=== PATIENT | female | born 1990 | race Caucasian/White ===

== ENCOUNTER 2019-07-11 18:57 | Inpatient (IN) ==
--- NOTE | 2019-07-11 20:58 | HP ---
Chief Complaint - Chief Complaint Date of Service: 07/11/19 Time of Service: 20:54 Chief Complaint: fall and contractions History of Present Illness: 28 year old @ 38w 0d who fell on her left knee from a few steps. She did not hit her abdomen. She denies vb or lof. She is kareem and her ctx are getting stronger. Fetus is active. Medical History (Updated 04/21/19 @ 08:52 by Elvira Rick RN) Anemia (Acute) w/ Neurofibromatosis, unspecified (Chronic) Migraine Onset Date: Unknown Neurofibromatosis Onset Date: ~08/09/15 neurofibromamid-occipital scalp-dr Antonio 2017 Surgical History: Surgical History (Updated 12/16/18 @ 14:34 by Eloy Corrales DO) Previous section (Chronic) H/O section Onset Date: ~03/16/16 H/O myringotomy age 4 Family History: Family History (Updated 12/16/18 @ 13:28 by Destiney Salazar CMA) Mother Migraine Osteoporosis Father Alive and well Social History: (Last Reviewed 07/09/19 @ 15:44 by Josefa Ruiz RN) Social History: Marital status: household members: spouse, children current occupational status: employed current occupation: [employer] current occupational exposures/hazards: No Service: No Tobacco: Smoking Status: Never smoker Alcohol: alcohol intake: former details: none since Substance Use: substance use type: does not use Dietary Habits: caffeine: Yes caffeine comment: 1/weekly Type: coffee Review Of Systems (GEN) - Review of Systems Generalized/Overall Review: Present: No Symptoms Reported Musculoskeletal: Present: Other - left knee abrasion Misc: All systems neg except as marked Allergies/Adverse Reactions: Allergies Allergy/AdvReac Type Severity Reaction Status Date / Time amoxicillin Allergy Intermediate hives Verified 07/11/19 19:22 cefaclor [From Ceclor] Allergy Intermediate hives Verified 07/11/19 19:22 latex Allergy Mild rash Verified 07/11/19 19:22 polyresin D Allergy Intermediate hives Uncoded 08/15/18 09:32 Home Medications: HOME MEDICATIONS Vits96/Iron Fum/Folic [ S] 1 tab PO DAILY 03/15/16 [Last Taken 07/10/19] ferrous sulfate 325 mg (65 mg iron) tablet 325 mg PO DAILY #30 tab 04/21/19 [Last Taken 07/11/19] ascorbic acid (vitamin C) 500 mg capsule mg PO DAILY cap 05/19/19 [Last Taken 07/11/19] breast pump See Dose Instructions .ROUTE .MEDSUPPLY #1 ea 06/25/19 [Last Taken Unknown] bacitracin 500 unit/gram topical ointment 1 applic TP TID #28 g 07/06/19 [Last Taken 07/11/19] Exam - Exam Vital Signs: 121/78 100 98% 16 Constitutional: Present: Alert, Oriented x3, Cooperative Respiratory: Present: lungs clear, normal breath sounds Cardiovascular/Chest: Present: regular rate, rhythm, no chest tenderness Abdomen: Present: soft, nontender, nondistended Extremity: Present: non-tender, no calf tenderness Skin Exam: Present: normal color, warm/dry, no cyanosis Appearance: Present: appropriate appearance Eye contact: Present: cooperative Thoughts: Present: normal thought pattern Assessment/Plan - Narrative Narrative: 28 year old @ 38w 0d Regular ctx s/p fall, left abdominal tenderness. Proceed with delivery.
[2019-07-11] MEDS ORDERED: ceFAZolin SODIUM/DEXTROSE,ISO 2 GM/50 ML BAG IV ONE (20:59)
[2019-07-11] MEDS ORDERED: RINGER'S SOLUTION,LACTATED 1,000 ML IV PRN (20:59)
[2019-07-11] MEDS ORDERED: OXYTOCIN 20 UNITS in RINGER'S SOLUTION,LACTATED 1,000 ML IV ONE ×2 (20:59→22:59)
--- NOTE | 2019-07-11 21:20 | ANES ---
Anesthesia Pre Procedure Eval HOME MEDICATIONS Vits96/Iron Fum/Folic [ S] 1 tab PO DAILY 03/15/16 [Last Taken 07/10/19] ferrous sulfate 325 mg (65 mg iron) tablet 325 mg PO DAILY #30 tab 04/21/19 [Last Taken 07/11/19] ascorbic acid (vitamin C) 500 mg capsule mg PO DAILY cap 05/19/19 [Last Taken 07/11/19] breast pump See Dose Instructions .ROUTE .MEDSUPPLY #1 ea 06/25/19 [Last Taken Unknown] bacitracin 500 unit/gram topical ointment 1 applic TP TID #28 g 07/06/19 [Last Taken 07/11/19] Allergies/Adverse Reactions: Allergies Allergy/AdvReac Type Severity Reaction Status Date / Time amoxicillin Allergy Intermediate hives Verified 07/11/19 19:22 cefaclor [From Ceclor] Allergy Intermediate hives Verified 07/11/19 19:22 latex Allergy Mild rash Verified 07/11/19 19:22 polyresin D Allergy Intermediate hives Uncoded 08/15/18 09:32 - Planned Procedure Planned Procedure: ACTIVE LABOR Medication List Reviewed:: Yes Allergies Verified: Yes Medical History (Updated 07/11/19 @ 20:58 by Kimmie Shen MD) Anemia (Acute) w/ Neurofibromatosis, unspecified (Chronic) Migraine Onset Date: Unknown Neurofibromatosis Onset Date: ~08/09/15 neurofibromamid-occipital scalp-dr Antonio 2017 Surgical History (Updated 07/11/19 @ 20:58 by Kimmie Shen MD) Previous section (Chronic) H/O section Onset Date: ~03/16/16 H/O myringotomy age 4 Family History (Updated 12/16/18 @ 13:28 by Destiney Salazar CMA) Mother Migraine Osteoporosis Father Alive and well - Family Anesthesia History Family History:: no untoward family reactions to anesthesia, no familial bleeding tendencies, no family history of clotting disorders, no family history of premature - Airway/Neck/Teeth Within Normal Limits:: Yes Teeth Condition: intact Neck Exam: full range of motion Mallampatti Score: 2 Thyromental (T-M) distance: > 6 cm Mandibulo Hyoid distance: > 3 cm - Respiratory Respiratory Physical: lungs clear Smoking Status: Never smoker Sleep Apnea currently treated: No Sleep Apnea by current assessment: No - Cardiovascular Tolerate Activity: Fair Heart Sounds: S1 & S2, Regular - Anesthesia Assessment and Plan ASA Class: PS, II, E Anesthesia Type Plan: Block - TAP block for post op pain relief, Spinal - Neurofibromatosis clear of lumbar spine
[2019-07-11] MEDS ORDERED: diphenhydrAMINE HCL 25 MG CAPSULE PO PRN (22:59)
[2019-07-11] MEDS ORDERED: ONDANSETRON HCL/PF 2 MG/ML VIAL IV PRN (22:59)
[2019-07-11] MEDS ORDERED: SIMETHICONE 80 MG TAB.CHEW PO PRN (22:59)
[2019-07-11] MEDS ORDERED: oxyCODONE HCL/ACETAMINOPHEN 1 TAB TABLET PO PRN (22:59)
[2019-07-11] MEDS ORDERED: SENNOSIDES 8.6 MG TABLET PO PRN (22:59)
[2019-07-11] MEDS ORDERED: BISACODYL 10 MG SUPP.RECT RC PRN (22:59)
--- NOTE | 2019-07-11 22:59 | OR ---
Operative Report - Dictated Report Narrative: Date of delivery: 07/11/2019 Time of delivery: 2149 Gender: male weight: 3194 grams APGARS: 9/9 Preoperative diagnosis: IUP @ 38w 0d, labor, left uterine tenderness, s/p fall Postoperative diagnosis: same in addition to very thin lower uterine segment Procedure: repeat delivery Surgeon: Dr. Shen Anesthesia: spinal Anesthesiologist: Enoch Mendieta CRNA Description of the procedure: The patient was taken to the operating room where spinal anesthesia was induced. She was then prepped and draped in the lithotomy position in the standard surgical fashion. A Pfannestiel skin incision was made following the patient's old scar. The incision was carried through the subcutaneous tissue. The fascia was incised in the midline. The fascial incision was extended sharply. The fascia was then dissected off the underlying rectus muscle. The rectus muscles were already in the midline. The peritoneum was entered bluntly. The peritoneal incision was extended bluntly. A large Gomez retractor was placed. The lower uterine segment was paper thin and it was incised with the scalpel. The uterine incision was extended bluntly. The membranes were ruptured and the fluid was clear. The head was delivered followed by the shoulders and then the rest of the infant. The cord was clamped and cut and the infant was handed off to the attending pediatric staff. The placenta was delivered by expression and appeared intact. The uterus was cleared of all clots and debris. The uterine incision was closed with two cigarette tester of 0-vicryl. Additional [id number] sutures were placed for additional hemostasis. Chris was also placed over the incision. Next, the subfascial area was made hemostatic as were the rectus muscles. On the left a vessel piercing the rectus muscle was made hemostatic. The fascia was closed with 1-0 vicryl. The subcutaneous tissue was copiously irrigated and made hemostatic. The skin incision was closed with 3-0 monocryl. [place] sweeney was placed over the incision. A pressure dressing was applied. EBL: 600 mL Complications: none Specimen: placenta History for Definition: * The number of deliveries resulting in a live the patient experienced prior to current hospitalization * The previous delivery of live twins or any live multiple gestation is considered one live event. *If primagravida or nulliparous is documented select zero for the number of previous live births. Live Events: 1
--- NOTE | 2019-07-11 23:07 | ANES ---
Post Anesthesia Discharge - Transfer of Care Transfer of Care handoff given to nurse: Yes - Discharge from PACU Discharge from PACU when meets criteria: Yes - Comfortable in PACU.
--- NOTE | 2019-07-11 23:08 | ANES ---
Anesthesia Procedure Note Procedure Note: ANESTHESIA PROCEDURE NOTE Date of Procedure: [07/11/2019 Time of procedure: 20 2:55 PM. Performed by: DALILA Mak CRNA, MSN Research Food Technologist: Christina Colvin RN. Preprocedure diagnosis: Post section pain. Post procedure diagnosis: Same. Procedure: Bilateral TAP block Indications: Post section pain relief. Findings: See below. Details of the procedure: The patient was brought to PACU and placed in the supine position. The patient was prepped with chlorhexidine and using ultrasound guidance the 3 abdominal muscular planes were identified and lidocaine 1% was infiltrated to the skin of the intended injection site. Under ultrasound guidance the the internal oblique and transverse this abdominis muscle layers were approached with visualization of a 4 inch block needle until the tip of the needle rested in the plane between the muscles. 25 mL bupivacaine 0.5% with 1-200,000 epinephrine was injected and the procedure was repeated on the other side. Please see radiology/ultrasound report for details and images of the procedure. EBL: 0 Fluids: N/A. Specimen: N/A. Post procedure condition: The patient tolerated the procedure well. No complications were noted. Thank you for this consultation. Enoch Mendieta CRNA, ARNP, MSN
--- NOTE | 2019-07-11 23:13 | ANES ---
Post Anesthesia Assessment - Vital Signs Vitals: Last Vital Signs Temp 37.3 C 07/11/19 23:09 Pulse 86 07/11/19 23:09 Resp 24 H 07/11/19 23:09 BP 119/91 H 07/11/19 23:09 Pulse Ox 100 07/11/19 23:09 Airway Patency: Normal - Mental Status Level Of Consciousness: Awake, Alert, Appropriate - Pain Level Pain Score: 0 - N/V Assessment Nausea/Vomiting Presence: None Dehydration:: No
[2019-07-11] MEDS: KETOROLAC TROMETHAMINE 30 MG/ML VIAL IV PRN (23:53)
[2019-07-12] MEDS ORDERED: SILVER SULFADIAZINE 25 APPL JAR TP SCH (02:00)
[2019-07-12] MEDS: guaiFENesin 100 MG/5 ML SYRUP PO PRN ×2 (02:03→15:04)
[2019-07-12 03:00] LABS: Cocaine Ur Negative (NEGATIVE); Urine Barbiturate Negative (NEGATIVE); Urine Benzodiazepines Negative (NEGATIVE); Urine Opiates Negative (NEGATIVE); Urine PCP Negative (NEGATIVE); Urine THC Negative (NEGATIVE)
[2019-07-12] MEDS: oxyCODONE HCL/ACETAMINOPHEN 1 TAB TABLET PO PRN ×5 (03:24→21:09)
[2019-07-12] MEDS: KETOROLAC TROMETHAMINE 30 MG/ML VIAL IV PRN (06:24)
[2019-07-12] MEDS ORDERED: AZITHROMYCIN 250 MG TABLET PO ONE (09:00)
[2019-07-12] MEDS: DOCUSATE SODIUM 100 MG CAPSULE PO SCH ×3 (09:17→21:10)
--- NOTE | 2019-07-12 11:18 | PN ---
Subjective - Date and Time Seen Date: 07/12/19 Time: 11:16 Subjective Narrative: Patient without complaints Objective Objective Narrative: See vital signs - Review of Systems Generalized/Overall Review: Reports: No Symptoms Reported Misc: All systems neg except as marked - Vitals Vitals: Last Vital Signs Temp 36.7 C 07/12/19 07:15 Pulse 78 07/12/19 07:15 Resp 20 07/12/19 07:15 BP 128/77 07/12/19 07:15 Pulse Ox 98 07/12/19 07:15 - Exam Constitutional: Present: Alert, Oriented x3, Cooperative, No distress Abdomen: Present: soft, nontender, nondistended - dressing c/d/i Extremity: Present: non-tender, no calf tenderness Skin Exam: Present: normal color, warm/dry, no cyanosis Appearance: Present: appropriate appearance Eye contact: Present: cooperative Thoughts: Present: normal thought pattern Cauti Physician Documentation - Urinary Catheter Management Urethral (Fink) Urethral Indwelling: No Date of Insertion: 07/11/19 Time of Insertion: 21:41 Assessment/Plan Plan Narrative: POD 1 s/p repeat delivery Doing well Discharge POD 3
[2019-07-12] MEDS: SILVER SULFADIAZINE 25 APPL JAR TP SCH (11:50)
[2019-07-12] MEDS: IBUPROFEN 800 MG TABLET PO PRN ×2 (13:54→19:55)
[2019-07-13] MEDS: guaiFENesin 100 MG/5 ML SYRUP PO PRN ×3 (00:18→14:27)
[2019-07-13] MEDS: oxyCODONE HCL/ACETAMINOPHEN 1 TAB TABLET PO PRN ×5 (00:20→19:13)
[2019-07-13] MEDS: IBUPROFEN 800 MG TABLET PO PRN ×3 (04:19→17:25)
--- NOTE | 2019-07-13 07:30 | PN ---
Subjective - Date and Time Seen Date: 07/13/19 Time: 07:29 Subjective Narrative: Patient without complaints Objective Objective Narrative: See vital signs - Review of Systems Generalized/Overall Review: Reports: No Symptoms Reported Misc: All systems neg except as marked - Vitals Vitals: Last Vital Signs Temp 36.2 C 07/13/19 00:21 Pulse 82 07/13/19 00:21 Resp 18 07/13/19 00:21 BP 132/76 07/13/19 00:21 Pulse Ox 98 07/13/19 00:21 - Exam Constitutional: Present: Alert, Oriented x3, Cooperative, No distress Abdomen: Present: soft, nontender, nondistended - dressing c/d/i Extremity: Present: non-tender, no calf tenderness Skin Exam: Present: normal color, warm/dry, no cyanosis Appearance: Present: appropriate appearance Eye contact: Present: cooperative Thoughts: Present: normal thought pattern Cauti Physician Documentation - Urinary Catheter Management Urethral (Fink) Urethral Indwelling: No Date of Insertion: 07/11/19 Time of Insertion: 21:41 Assessment/Plan Plan Narrative: POD 2 s/p repeat delivery Doing well Discharge tomorrow
[2019-07-13] MEDS: DOCUSATE SODIUM 100 MG CAPSULE PO SCH ×2 (08:01→19:14)
[2019-07-13] MEDS: AZITHROMYCIN 250 MG TABLET PO SCH (08:01)
[2019-07-13] MEDS: SILVER SULFADIAZINE 25 APPL JAR TP SCH (08:02)
--- NOTE | 2019-07-13 09:56 | PN ---
Subjective - Date and Time Seen Date: 07/13/19 Time: 09:55 Objective - Vitals Vitals: Last Vital Signs Temp 96.8 F 07/13/19 07:00 Pulse 86 07/13/19 07:00 Resp 16 07/13/19 07:00 BP 102/66 07/13/19 07:00 Pulse Ox 98 07/13/19 07:00 Cauti Physician Documentation - Urinary Catheter Management Urethral (Fink) Urethral Indwelling: No Date of Insertion: 07/11/19 Time of Insertion: 21:41
[2019-07-14] MEDS: DOCUSATE SODIUM 100 MG CAPSULE PO SCH ×3 (00:04→10:29)
[2019-07-14] MEDS: IBUPROFEN 800 MG TABLET PO PRN ×2 (00:05→07:40)
[2019-07-14] MEDS: AZITHROMYCIN 250 MG TABLET PO SCH ×2 (07:39→10:30)
[2019-07-14] MEDS: oxyCODONE HCL/ACETAMINOPHEN 1 TAB TABLET PO PRN (07:40)
[2019-07-14 07:58] VITALS: BP 118/80
--- NOTE | 2019-07-14 08:07 | PN ---
Subjective - Date and Time Seen Date: 07/14/19 Time: 08:06 Subjective Narrative: Patient without complaints Objective Objective Narrative: See vital signs - Review of Systems Generalized/Overall Review: Reports: No Symptoms Reported Misc: All systems neg except as marked - Vitals Vitals: Last Vital Signs Temp 36.8 C 07/14/19 07:57 Pulse 78 07/14/19 07:57 Resp 16 07/14/19 07:57 BP 118/80 07/14/19 07:57 Pulse Ox 98 07/14/19 00:09 - Exam Constitutional: Present: Alert, Oriented x3, Cooperative, No distress Abdomen: Present: soft, nontender, nondistended - incision c/d/i Extremity: Present: non-tender, no calf tenderness Skin Exam: Present: normal color, warm/dry, no cyanosis Appearance: Present: appropriate appearance Eye contact: Present: cooperative Thoughts: Present: normal thought pattern Cauti Physician Documentation - Urinary Catheter Management Urethral (Fink) Urethral Indwelling: No Date of Insertion: 07/11/19 Time of Insertion: 21:41 Assessment/Plan Plan Narrative: POD 3 s/p delivery Doing well Discharge home Follow-up in 2 weeks for incision check
[2019-07-14] MEDS: SILVER SULFADIAZINE 25 APPL JAR TP SCH (10:30)
== END 2019-07-14 12:45 | disposition home or self-care (01) | DRG 788 ==
LOC: OBCLINIC 18:57 → OB 21:09
PROVIDERS: ADMIT Obstetrics & Gynecology; ATTEND Obstetrics & Gynecology
CPT/HCPCS: 59025; 80307; 88307